=== PATIENT | female | born 1945 | race Caucasian/White ===

== ENCOUNTER 2016-12-26 20:03 | Emergency (ER) | payer MEDICARE, BC ==
[~2016-12-26] VITALS: Ht 167.6 cm; Wt 100.2 kg
--- NOTE | 2016-12-26 20:30 | PHYS DOC ---
Past History Past Medical History: Anxiety, CVA, Diabetes, Hypertension Additional Past Medical Histor: sinusitis Additional Past Surgical Histo: back surgery and back similar placement Smoking: Non-smoker Alcohol Use: None Adult General Chief Complaint Chief Complaint: SKIN RASH/ABSCESS [facility] This patient is a pleasant 71-year-old female with history of multiple medical problems who presents with sudden onset of a rash that is intensely itching on her upper abdomen torso arms and back. It is been recently treated for an acute sinusitis with oral antibiotics, inhaled Flonase, hydrocodone and Naprosyn for her symptoms though she is on the last day of her course of treatment she noted an intensely itchy rash in her upper extremities abdominal wall back and chest wall. It is described as red irritated inflamed and raised. There are no joints associated with increasing pain other than chronic left knee pain which is not new for patient. She denies any fevers, chills, headache, she's had a little bit of bad breath and some reflux symptoms since using the Naprosyn and hydrocodone. She denies any vomiting or nausea diarrhea at this time. Patient denies any headache, focal neurologic deficits, history of tick bites or travel outside the country. She also denies any trauma or the introduction of new soaps , no perfumes deodorants, or foods. Review of Systems Review of Systems Constitutional: Denies fever or chills [] Eyes: Denies change in visual acuity, redness, or eye pain [] HENT: She has chronic nasal congestion. Respiratory: Denies cough or shortness of breath he complains of bad breath [] Cardiovascular: No additional information not addressed in HPI [] GI: Denies abdominal pain, but she has had some nausea without vomiting diarrhea or bloody stools. : Denies dysuria or hematuria [] Musculoskeletal: Denies back pain she has chronic lower back pain and chronic joint pain Integument: Does complain of a skin rash Neurologic: Denies headache, focal weakness or sensory changes [] Endocrine: Denies polyuria or polydipsia [] Physical Exam Physical Exam This patient's vital signs reviewed by me demonstrate hypertension. Constitutional: Well developed, well nourished, no acute distress, non-toxic appearance. [] HENT: Normocephalic, atraumatic, bilateral external ears normal, oropharynx moist, no oral exudates, nose normal. [] Eyes: PERRLA, EOMI, conjunctiva normal, no discharge. [] Neck: Normal range of motion, no tenderness, supple, no stridor. [] Cardiovascular:Heart rate regular rhythm, no murmur [] Lungs & Thorax: Bilateral breath sounds clear to auscultation [] Skin: Warm, dry, and demonstrates urticarial-like rash: Resting on the under part of the arms bilaterally, the abdominal wall, and back also on the chest wall. There is no petechiae, purpura or vesicles. There is no central target lesions no palm and sole moment. Extremities: No tenderness, no cyanosis, no clubbing, ROM intact, no edema. [] Neurologic: Alert and oriented X 3, normal motor function, normal sensory function, no focal deficits noted. [] Psychologic: Affect normal, judgement normal, mood normal. [] EKG EKG [] Radiology/Procedures Radiology/Procedures [] Course & Med Decision Making Course & Med Decision Making Pertinent Labs and Imaging studies reviewed. (See chart for details) she has been exposed to a number of medications and for she's allergic to a great deal of stings. Is unclear about what caused this particular rashes but she is improving significantly with IM epinephrine, Benadryl, prednisone and Pepcid. Doubt angioedema, doubt some rash associated with tick borne illness. Doubt Tracey-Espinoza syndrome or TEN or necrotizing fasciitis. [] Dragon Disclaimer Dragon Disclaimer This chart was dictated in whole or in part using Voice Recognition software in a busy, high-work load, and often noisy Emergency Department environment. It may contain unintended and wholly unrecognized errors or omissions. Departure Departure: Impression: Primary Impression: Urticaria Disposition: 01 HOME, SELF-CARE Condition: IMPROVED Referrals: LORRAINE HENLEY MD (PCP) Patient Instructions: Drug Rash Additional Instructions: I believe that your suffering from urticaria which is environmental allergic reaction. Please return for any shortness of breath, tightness in your throat, fevers greater 102.2, blood in her stool, lesions in her mouth, or if you've any questions or concerns. Scripts Famotidine (PEPCID) 20 Mg Tablet 1 TAB PO BID, #20 TAB 3 Refills Prov: JESSE LIRIANO MD 8/12/17 Prednisone (PREDNISONE) 20 Mg Tablet 3 TAB PO DAILY for 5 Days, #15 TAB Prov: JESSE LIRIANO MD 12/26/16 Diphenhydramine Hcl (BENADRYL) 25 Mg Capsule 50 MG PO QID for 7 Days, #56 CAP Prov: JESSE LIRIANO MD 12/26/16 JESSE LIRIANO MD Dec 26, 2016 20:30
[2016-12-26] MEDS ORDERED: FAMOTIDINE 20 MG TABLET PO ONE (21:00)
[2016-12-26] MEDS ORDERED: diphenhydrAMINE 50 MG/ML VIAL IM ONE (21:00)
[2016-12-26] MEDS ORDERED: predniSONE 20 MG TABLET PO ONE (21:00)
[2016-12-26] MEDS ORDERED: EPINEPHrine 1 MG/ML AMPUL IM ONE (21:00)
[2016-12-26] MEDS ORDERED: DIPH25CA58 PO (21:19)
[2016-12-26] MEDS ORDERED: PRED20TA PO (21:19)
[2016-12-26] MEDS ORDERED: FAMO-63 PO (21:19)
[2016-12-26 21:40] VITALS: BP 148/68
== END 2016-12-26 21:45 | disposition home or self-care (01) ==
LOC: ER 20:03
DX: L50.9 Urticaria, unspecified (principal); E11.9 Type 2 diabetes mellitus without complications; I10 Essential (primary) hypertension; Z86.73 Personal history of transient ischemic attack (TIA), and cerebral infarction without residual deficits; G89.29 Other chronic pain
CPT/HCPCS: 96372; 99284; J0171; J1200; J7512

== ENCOUNTER 2017-02-10 11:56 | Emergency (ER) | payer MEDICARE, BC ==
[~2017-02-10] VITALS: Ht 167.6 cm; Wt 100.2 kg
[~2017-02-10 11:56] MED LIST: DIPH25CA58 PO; FAMO-63 PO; PRED20TA PO
--- NOTE | 2017-02-10 13:11 | PHYS DOC ---
Past History Past Medical History: Anxiety, CVA, Diabetes, Hypertension Additional Past Medical Histor: sinusitis Past Surgical History: Appendectomy, Cholecystectomy, Knee Replacement, Other Additional Past Surgical Histo: back surgery and back similar placement Smoking: Non-smoker Alcohol Use: None Drug Use: None Adult General Chief Complaint Chief Complaint: WOUND CHECK HPI HPI SHe is a pleasant 71-year-old female who presents to the back similar to replaced and have the sutures removed yesterday. Patient has had difficulty getting the bleeding to stop from the wound. She denies any fevers, chills or other symptoms. She is noted that the Steri-Strips will not stay, and the patches using to apply to her wound are being stained with blood. She is on daily Plavix dose that she began after 28 January. And after the sutures of been removed the bleeding will not stop. She denies any shortness of breath, exertional dyspnea, chest pain, lightheaded or dizziness or other symptoms, noting extreme blood loss. SHe called the office today twice and they advised her to come to the emergency department for an immediate evaluation of this wound. Review of Systems Review of Systems Constitutional: Denies fever or chills [] Eyes: Denies change in visual acuity, redness, or eye pain [] HENT: Denies nasal congestion or sore throat [] Respiratory: Denies cough or shortness of breath [] Cardiovascular: No additional information not addressed in HPI [] GI: Denies abdominal pain, nausea, vomiting, bloody stools or diarrhea [] : Denies dysuria or hematuria [] Musculoskeletal: Denies back pain or joint pain [] Integument: Denies rash or skin lesions [] Neurologic: Denies headache, focal weakness or sensory changes [] Endocrine: Denies polyuria or polydipsia [] Allergies Allergies Allergies Coded Allergies Type Severity Reaction Last Updated Verified divalproex sodium Allergy Severe 12/26/16 Yes Penicillins Allergy Intermediate 12/26/16 Yes Sulfa (Sulfonamide Antibiotics) Allergy Intermediate 12/26/16 Yes acetaminophen Allergy Intermediate 12/26/16 Yes adhesive tape Allergy Intermediate 12/26/16 Yes gabapentin Allergy Intermediate Swelling 12/26/16 Yes nortriptyline Allergy Intermediate 12/26/16 Yes oxycodone Allergy Intermediate 12/26/16 Yes pregabalin Allergy Intermediate Swelling 12/26/16 Yes topiramate Allergy Unknown 12/26/16 Yes meperidine Adverse Reaction Intermediate Nausea and Vomiting 12/26/16 Yes morphine Adverse Reaction Intermediate Nausea and Vomiting 12/26/16 Yes Physical Exam Physical Exam Vital signs recorded on the chart patient noted to be hypertensive. SHe is not tachycardic blood pressure is 113/95 patient's heart rate is 99 saturation a percent on room air. Constitutional: Well developed, well nourished, no acute distress, non-toxic appearance. [] Skin: Warm, dry, no erythema, no rash. Patient has a linear wound well approximated measuring 5-6 cm along the left lower back. There is one small area that is mildly dehisced showing signs of OOZE likely some a subcutaneous seroma. Patient has no erythema to the wound edges, the rest of the wound is well approximated and well healing. Back: No tenderness, no CVA tenderness. [] ] Neurologic: Alert and oriented X 3, normal motor function, normal sensory function, no focal deficits noted. [] EKG EKG [] Radiology/Procedures Radiology/Procedures [] Course & Med Decision Making Course & Med Decision Making Pertinent Labs and Imaging studies reviewed. (See chart for details) Patient with a small area of wound dehiscence requiring just Steri-Strips and Mastisol. I placed a small area of Gelfoam over the top of the wound. This is designed to help facilitate clotting concerning the fact that the patient is on Plavix. Her vital signs are unremarkable with exception of borderline hypertension based on diastolic blood pressure. Patient is not exhibiting tachycardia or signs of significant blood loss. She understands how to treat this wound and she will follow-up with her primary care physician to continue to take care of it. There is no common signs of sinusitis or abscess around the wound. There is likely a seroma subcutaneously that needs to continue to drain once this is done direct facilitate healing of the wound. [] Dragon Disclaimer Dragon Disclaimer This chart was dictated in whole or in part using Voice Recognition software in a busy, high-work load, and often noisy Emergency Department environment. It may contain unintended and wholly unrecognized errors or omissions. Departure Departure: Impression: Primary Impression: Encounter for post surgical wound check Disposition: 01 HOME, SELF-CARE Condition: STABLE Referrals: LORRAINE HENLEY MD (PCP) Patient Instructions: Wound Check Additional Instructions: My discharge plan Follow up: In addition patient is asked to followup with their primary doctor, within a week for followup examination and to address patient's ongoing medical conditions. Patient is advised that in the Emergency Department primary complaints are addressed and only in light of known signs and symptoms. Patient should return immediately to the emergency department if new signs and symptoms develop or patient's condition worsens in any way. At time of discharge patient was in stable condition and had verbalized understanding of the discharge instructions. Please use the Gelfoam provided by the staff here to help treat her wound. Please return for any signs of infection or if you have any questions or concerns. JESSE LIRIANO MD Feb 10, 2017 13:11
[2017-02-10 13:30] VITALS: BP 146/82
[2017-02-10] MEDS ORDERED: GELATIN SPONGE SIZE 12-7MM SPONGE. TP ONE (13:30)
== END 2017-02-10 13:32 | disposition home or self-care (01) ==
LOC: ER 11:56
DX: Z48.01 Encounter for change or removal of surgical wound dressing (principal); E11.9 Type 2 diabetes mellitus without complications; Z86.73 Personal history of transient ischemic attack (TIA), and cerebral infarction without residual deficits; Z79.02 Long term (current) use of antithrombotics/antiplatelets; I10 Essential (primary) hypertension; Z88.6 Allergy status to analgesic agent; Z88.5 Allergy status to narcotic agent; Z88.0 Allergy status to penicillin; Z88.2 Allergy status to sulfonamides; Z88.8 Allergy status to other drugs, medicaments and biological substances
CPT/HCPCS: 99282

== ENCOUNTER → 2018-06-16 | Outpatient (CLI) | payer MEDICARE, BC ==
[2018-06-16 15:35] LABS: HEMATOCRIT 35.1 % (36.0-47.0); HEMOGLOBIN 11.2 g/dL (12.0-15.5)
[2018-06-16 15:41] LABS: ALBUMIN 3.8 g/dL (3.4-5.0); CALCIUM 9.9 mg/dL (8.5-10.1); CREATININE 1.3 mg/dL (0.6-1.0); GFR 40.3; PHOSPHORUS 4.1 mg/dL (2.6-4.7); POTASSIUM 4.1 mmol/L (3.5-5.1)
[2018-06-17 05:12] LABS: CALCIUM PTH 10.2 mg/dL (8.7-10.3); CREATININE PTH 1.11 mg/dL (0.57-1.00); PTH INTACT 27 pg/mL (15-65)
[2018-06-17 15:21] LABS: BILIRUBIN,URINE NEG (NEG); CLARITY,URINE CLEAR; COLOR,URINE STRAW; GLUCOSE,URINE NEG (NEG)
[2018-06-17 15:22] LABS: BACTERIA,URINE FEW /HPF (0-FEW); NITRITE,URINE NEG (NEG); RBC,URINE OCC /HPF (0-2); SQUAMOUS EPITHELIAL CELL,UR FEW /LPF; UROBILINOGEN,URINE 0.2 mg/dL (0.2 mg/dL)
[2018-06-18 07:12] LABS: MICRO CREAT RATIO 43.3 mg/g creat (0.0-30.0); MICROALB RD UR 15.9 ug/mL (Not Estab.)
== END | disposition home or self-care (01) ==
LOC: LAB 14:50
PROVIDERS: ATTEND Internal Medicine Nephrology
DX: N17.9 Acute kidney failure, unspecified (principal); E11.9 Type 2 diabetes mellitus without complications; I10 Essential (primary) hypertension; Z90.49 Acquired absence of other specified parts of digestive tract
CPT/HCPCS: 36415; 80069; 81001; 82043; 82570; 83970; 84156; 85014; 85018; 87086

== ENCOUNTER → 2018-10-21 | Outpatient (CLI) | payer MEDICARE, BC ==
[2018-10-21 10:50] LABS: ALBUMIN 3.7 g/dL (3.4-5.0); CALCIUM 9.6 mg/dL (8.5-10.1); CREATININE 1.1 mg/dL (0.6-1.0); GFR 48.8; PHOSPHORUS 3.7 mg/dL (2.6-4.7); POTASSIUM 4.2 mmol/L (3.5-5.1)
== END | disposition home or self-care (01) ==
LOC: LAB 09:40
PROVIDERS: ATTEND Internal Medicine Nephrology
DX: N17.9 Acute kidney failure, unspecified (principal); I12.9 Hypertensive chronic kidney disease with stage 1 through stage 4 chronic kidney disease, or unspecified chronic kidney disease; N18.3 Chronic kidney disease, stage 3 (moderate); E11.22 Type 2 diabetes mellitus with diabetic chronic kidney disease; Z68.32 Body mass index [BMI] 32.0-32.9, adult
CPT/HCPCS: 36415; 80069

== ENCOUNTER → 2018-10-21 | Outpatient (CLI) | payer MEDICARE, BC ==
[2018-10-21 10:50] LABS: ALBUMIN 3.7 g/dL (3.4-5.0); CALCIUM 9.5 mg/dL (8.5-10.1); CREATININE 1.1 mg/dL (0.6-1.0); GFR 48.8; POTASSIUM 4.3 mmol/L (3.5-5.1); TOTAL BILIRUBIN 0.4 mg/dL (0.2-1.0); TOTAL PROTEIN 7.4 g/dL (6.4-8.2)
[2018-10-23 00:11] LABS: MICRO CREAT RATIO 45.5 mg/g creat (0.0-30.0)
== END | disposition home or self-care (01) ==
LOC: LAB 09:33
PROVIDERS: ATTEND Internal Medicine
DX: E11.22 Type 2 diabetes mellitus with diabetic chronic kidney disease (principal); I12.9 Hypertensive chronic kidney disease with stage 1 through stage 4 chronic kidney disease, or unspecified chronic kidney disease; N18.3 Chronic kidney disease, stage 3 (moderate)
CPT/HCPCS: 36415; 80053; 80061; 82043; 82570

== ENCOUNTER → 2019-06-06 | Outpatient (CLI) | payer MEDICARE, BC ==
[2019-06-06 13:02] LABS: HEMATOCRIT 44.1 % (36.0-47.0); HEMOGLOBIN 14.5 g/dL (12.0-15.5)
[2019-06-06 13:08] LABS: ALBUMIN 3.8 g/dL (3.4-5.0); CALCIUM 9.3 mg/dL (8.5-10.1); CREATININE 1.1 mg/dL (0.6-1.0); GFR 48.7; PHOSPHORUS 3.9 mg/dL (2.6-4.7); POTASSIUM 4.5 mmol/L (3.5-5.1)
[2019-06-07 01:06] LABS: MICROALB RD UR 171.5 ug/mL (Not Estab.)
[2019-06-07 11:08] LABS: CALCIUM PTH 10.1 mg/dL (8.7-10.3); CREATININE PTH 1.06 mg/dL (0.57-1.00); PTH INTACT 22 pg/mL (15-65)
[2019-06-07 13:11] LABS: CREATININE,RANDOM URINE 61.4 mg/dL (Not Establ.)
== END | disposition home or self-care (01) ==
LOC: LAB 11:51
PROVIDERS: ATTEND Internal Medicine Nephrology
DX: N17.9 Acute kidney failure, unspecified (principal); I12.9 Hypertensive chronic kidney disease with stage 1 through stage 4 chronic kidney disease, or unspecified chronic kidney disease; N18.3 Chronic kidney disease, stage 3 (moderate); Z68.33 Body mass index [BMI] 33.0-33.9, adult
CPT/HCPCS: 36415; 80069; 82043; 82306; 82570; 83970; 84156; 85014; 85018

== ENCOUNTER → 2020-01-09 | Outpatient (CLI) | payer MEDICARE, BC ==
[2020-01-09 15:27] LABS: THYROID STIM HORMONE (TSH) 2.827 uIU/mL (0.358-3.740)
== END ==
LOC: LAB 08:23
PROVIDERS: ATTEND Internal Medicine
DX: E11.22 Type 2 diabetes mellitus with diabetic chronic kidney disease (principal); E03.9 Hypothyroidism, unspecified; N18.9 Chronic kidney disease, unspecified
CPT/HCPCS: 80061; 84443

== ENCOUNTER → 2020-01-09 | Outpatient (CLI) | payer MEDICARE, BC ==
[2020-01-09 11:11] LABS: HEMATOCRIT 44.2 % (36.0-47.0); HEMOGLOBIN 14.4 g/dL (12.0-15.5)
[2020-01-09 11:16] LABS: ALBUMIN 3.7 g/dL (3.4-5.0); CALCIUM 9.1 mg/dL (8.5-10.1); CREATININE 1.3 mg/dL (0.6-1.0); GFR 40.2; PHOSPHORUS 3.6 mg/dL (2.6-4.7); POTASSIUM 4.3 mmol/L (3.5-5.1)
[2020-01-09 14:56] LABS: CREATININE,RANDOM URINE 124.8 mg/dL (Not Establ.)
[2020-01-10 00:07] LABS: CALCIUM PTH 9.9 mg/dL (8.7-10.3); CREATININE PTH 1.05 mg/dL (0.57-1.00); MICROALB RD UR 124.9 ug/mL (Not Estab.); PTH INTACT 61 pg/mL (15-65)
== END | disposition home or self-care (01) ==
LOC: LAB 08:18
PROVIDERS: ATTEND Nurse Practitioner Adult Health
DX: I12.9 Hypertensive chronic kidney disease with stage 1 through stage 4 chronic kidney disease, or unspecified chronic kidney disease (principal); N18.3 Chronic kidney disease, stage 3 (moderate); Z68.35 Body mass index [BMI] 35.0-35.9, adult
CPT/HCPCS: 36415; 80069; 82043; 82570; 83970; 84156; 85014; 85018

== ENCOUNTER → 2020-09-13 | Outpatient (CLI) | payer MEDICARE, BC ==
[2020-09-13 11:30] LABS: ALBUMIN 3.9 g/dL (3.4-5.0); CALCIUM 9.6 mg/dL (8.5-10.1); CREATININE 1.1 mg/dL (0.6-1.0); GFR 48.6; PHOSPHORUS 3.6 mg/dL (2.6-4.7)
== END ==
LOC: LAB 09:15
PROVIDERS: ATTEND Internal Medicine Nephrology
DX: I12.9 Hypertensive chronic kidney disease with stage 1 through stage 4 chronic kidney disease, or unspecified chronic kidney disease (principal); N18.30 Chronic kidney disease, stage 3 unspecified; N17.9 Acute kidney failure, unspecified; Z68.35 Body mass index [BMI] 35.0-35.9, adult
CPT/HCPCS: 36415; 80069

== ENCOUNTER → 2021-03-11 | Outpatient (CLI) | payer MEDICARE, BC ==
[2021-03-11 12:46] LABS: ALBUMIN 3.7 g/dL (3.4-5.0); CALCIUM 9.8 mg/dL (8.5-10.1); GFR 54.2; PHOSPHORUS 4.1 mg/dL (2.6-4.7); POTASSIUM 4.3 mmol/L (3.5-5.1)
== END ==
LOC: LAB 12:05
PROVIDERS: ATTEND Internal Medicine Nephrology
DX: N17.9 Acute kidney failure, unspecified (principal); I12.9 Hypertensive chronic kidney disease with stage 1 through stage 4 chronic kidney disease, or unspecified chronic kidney disease; N18.31 Chronic kidney disease, stage 3a; G62.9 Polyneuropathy, unspecified; G43.909 Migraine, unspecified, not intractable, without status migrainosus; G47.30 Sleep apnea, unspecified; Z68.36 Body mass index [BMI] 36.0-36.9, adult
CPT/HCPCS: 36415; 80069